=== PATIENT | male | born 1980 | race Caucasian/White ===

== ENCOUNTER 2019-11-13 09:42 | Emergency (ER) | payer SELFPAY ==
--- NOTE | ~2019-11-13 | XR_ITS ---
EXAMINATION: XR chest 2V 11/13/2019 10:57 INDICATION: Dyspnea PROCEDURE: 2 view chest COMPARISON: 09/02/2016 FINDINGS: The lungs are clear. The cardiomediastinal silhouette is within normal limits. There are no pleural effusions. There is no pneumothorax suspected. IMPRESSION: 1: NO ACUTE CARDIOPULMONARY DISEASE. Reviewed, dictated and finalized at location B.
--- NOTE | ~2019-11-13 | CT_ITS ---
EXAMINATION: CT abdomen pelvis w con DATE: 11/13/2019 11:46 INDICATION: Epigastric pain TECHNIQUE: Computed tomography (CT) of the abdomen and pelvis was performed with 100 cc Omnipaque 350 intravenous contrast. The dose-length product was 1286.38 mGy-cm. Automated exposure control and ite rative reconstruction technique were employed. COMPARISON: CT dated 07/26/2003 FINDINGS: Lung bases are unremarkable. No significant pleural or pericardial effusion. Heart size is normal. There is mild thickening of the pancreas with subtle peripancreatic infiltration of the fat, consistent with acute pancreatitis. The liver, spleen, adrenal glands and left kidney are unremarkabl e. There is a punctate nonobstructing bilateral renal stones. Normal appendix. Nonobstructive bowel g as pattern. No lymphadenopathy. No free air or free fluid. No abscess. No acute osseous abnormality. IMPRESSION: 1. Acute uncomplicated pancreatitis. 2: Nonobstructing bilateral nephrolithiasis. Reviewed, dictated and finalized at location B.
[2019-11-13 10:00] VITALS: BP 143/85; PULSE 64; RESP 16; TEMP 36.4; O2SAT 100
--- NOTE | 2019-11-13 10:35 | ECG_ITS ---
Measurements Intervals [place] Rate: 61 P: 20 IN: 175 QRS: -5 QRSD: 94 T: -2 QT: 403 QTc: 407 Interpretive Statements SINUS RHYTHM BORDERLINE ST-T WAVE ABNORMALITY- INFERIOR LEADS BORDERLINE ECG Electronically Signed On 11-13-2019 13:27:33 CDT by Varinder Garcia D.O.
--- NOTE | 2019-11-13 10:37 | ED.ABDPAIN ---
HPI - Abdominal Pain General Chief Complaint: Abdominal Pain Stated Complaint: upper abd pain Time Seen by Provider: 11/13/19 10:11 Source: patient Mode of arrival: ambulatory Limitations: no limitations History of Present Illness HPI narrative: This is a 38-year-old male that presents the emergency department for achy upper abdominal pain since yesterday afternoon. Reports it has been constant. Feels like a pressure. Worse with eating. Took Aleve yesterday with some relief. Denies fever, chest pain, shortness of breath, nausea, vomiting, diarrhea, or dysuria. Related Data Allergies Allergy/AdvReac Type Severity Reaction Status Date / Time oseltamivir Allergy Unknown Unknown Verified 11/13/19 10:51 Review of Systems Review of Systems: Narrative: CONSTITUTIONAL: Denies fever CARDIOVASCULAR: Denies chest pain, or edema. RESPIRATORY: Denies dyspnea. GASTROINTESTINAL: Reports abdominal pain. Denies nausea, vomiting, or diarrhea. GENITOURINARY: Denies dysuria or hematuria. All systems reviewed & are unremarkable except as noted in HPI and below PMFSH Past Medical History Medical History (Updated 11/13/19 @ 13:37 by Darlene Herbert PA-C) History of kidney stones Social History Social History (Updated 11/13/19 @ 10:38 by Darlene Herbert PA-C) Smoking status: Never smoker Substance use: never Exam Narrative: Exam Narrative: GENERAL: Well-appearing, well-nourished, and in no acute distress. HEAD: Normocephalic, atraumatic. EYES: EOMI. CHEST: Clear to auscultation. No respiratory distress. No wheezes rales or rhonchi HEART: Regular rate and rhythm. No murmur heard. Normal peripheral pulses. ABDOMEN: Soft, nondistended, normal active bowel sounds. Mild tenderness to palpation of the epigastrium, without guarding EXTREMITIES: Normal range of motion. No edema. SKIN: Warm, dry, no rash. NEURO: No focal deficits. Alert and oriented x3. PSYCH: Normal mood and affect Course Consultations Consultation #1: Spoke with patient's primary, Dr. Elan Molina about work-up will follow-up in clinic. Date: 11/13/19 Time: 13:36 Vital Signs Vital signs: Vital Signs Temperature 97.6 F 11/13/19 10:00 Pulse Rate 64 11/13/19 10:00 Respiratory Rate 16 11/13/19 10:00 Blood Pressure 143/85 H 11/13/19 10:00 Pulse Oximetry 100 11/13/19 10:00 Temperature 97.6 F 11/13/19 10:00 Pulse Rate 53 L 11/13/19 12:10 Respiratory Rate 16 11/13/19 12:10 Blood Pressure 128/80 11/13/19 12:10 Pulse Oximetry 98 11/13/19 12:10 MDM - Abdominal Pain MDM Narrative Medical decision making narrative: Patient presents to the emergency department for upper abdominal pain since yesterday. He is afebrile and nontoxic-appearing. CBC and metabolic panel without acute findings. Lipase is normal. UA without evidence of infection. Chest x-ray without acute findings. EKG without concerning changes and baseline troponin is negative. CT scan of the abdomen and pelvis shows acute uncomplicated pancreatitis. Patient is stable and felt appropriate for further outpatient evaluation. Will be given pain medication and nausea medication as needed for home. Spoke with patient's primary, Dr. Elan Molina about work-up will follow-up in clinic. Patient was given warnings to return to the ER Lab Data Attestation: I reviewed the patient's lab results. Result diagrams: 11/13/19 10:07 11/13/19 10:07 Labs: Lab Results 11/13/19 11/13/19 11/13/19 Range/Units 10:07 10:07 10:07 WBC 9.8 (4.5-10.0) K/mm3 RBC 4.72 (4.6-6.20) M/mm3 Hgb 15.2 (14.0-18.0) g/dL Hct 43.0 (42.0-52.0) % MCV 91.1 (80-100) fl MCH 32.2 (26-34) pg MCHC 35.3 (32-36) g/dl RDW 11.9 (11.5-14.5) % Plt Count 235 (150-375) k/mm3 MPV 10.9 H (7.4-10.4) fl Immature Gran % (Auto) 0.4 (0-0.5) % Neut % (Auto) 64.6 (45.5-73.1) % Lymph % (Auto) 23.1 (18.3-44.2) % [place] % (Auto) 8.2 (2.6
[2019-11-13 10:54] LABS: Basophils Absolute Auto 0.1 K/mm3 (0.0-0.1); Basophils Percent Auto 0.7 % (0.2-1.2); Eosinophils Absolute Auto 0.3 K/mm3 (0-0.3); Hemoglobin 15.2 g/dL (14.0-18.0); Immature Granulocyte Absolute 0.04 K/mm3 (0.00-0.031); Immature Granulocyte Percent A 0.4 % (0-0.5); Lymphocytes Absolute Auto 2.25 K/mm3 (0.9-3.2); Lymphocytes Percent Auto 23.1 % (18.3-44.2); Mean Corpuscular HGB Conc 35.3 g/dl (32-36); Mean Corpuscular Hemoglobin 32.2 pg (26-34); Mean Corpuscular Volume 91.1 fl (80-100); Mean Platelet Volume 10.9 fl (7.4-10.4); Monocytes Absolute Auto 0.8 K/mm3 (0.1-0.6); Monocytes Percent Auto 8.2 % (2.6-8.5); Neutrophils Absolute Auto 6.3 K/mm3 (1.3-6.7); Neutrophils Percent Auto 64.6 % (45.5-73.1); Platelet Count Result 235 k/mm3 (150-375); Red Blood Count 4.72 M/mm3 (4.6-6.20); Red Cell Distribution Width 11.9 % (11.5-14.5); White Blood Count 9.8 K/mm3 (4.5-10.0)
[2019-11-13] MEDS: ONDANSETRON INJ 4 MG/2 ML VIAL IV PUSH (11:01)
[2019-11-13] MEDS: FAMOTIDINE 20 MG/2 ML VIAL IV PUSH (11:01)
[2019-11-13 11:02] LABS: Alanine Aminotransferase 20 U/L (4-50); Albumin Level 4.4 g/dL (3.5-5.1); Alkaline Phosphatase 63 U/L (38-126); Aspartate Amino Transferase 21 U/L (17-59); Bilirubin,Total 0.8 mg/dL (0.2-1.3); Blood Urea Nitrogen 14 mg/dL (9-20); Calcium 8.5 mg/dL (8.4-10.2); Carbon Dioxide 26 mmol/L (22-30); Chloride 102 mmol/L (98-107); Estimated Glomerular Filt Rate > 60; Glucose 97 mg/dL (75-110); Lipase 38 U/L (23-300); Potassium 3.7 mmol/L (3.4-5.0); Sodium 136 mmol/L (137-145)
[2019-11-13 11:03] LABS: Add Urine Microscopic? NO; Appearance Urine Clear (Clear); Bilirubin Urine Negative (Negative); Blood Urine Negative (Negative); Color Urine Straw (Yellow); Glucose Urine UA Negative (Negative); Ketones Urine Negative (Negative); Leukocyte Esterase Ur Negative LEU/UL (Negative); Mucus Urine Rare /lpf; Nitrate Urine Negative (Negative); Protein Urine Negative (Negative); Specific Grav Ur 1.011 (1.001-1.035); Urobilinogen Urine Negative mg/dL (<2.0); WBC Urine 0-3 /hpf
[2019-11-13 11:42] LABS: Troponin I < 0.012 ng/mL (0.000-0.034)
[2019-11-13 12:10] VITALS: BP 128/80; PULSE 53; RESP 16; O2SAT 98
[2019-11-13] MEDS: SODIUM CHLORIDE 0.9% IV 1,000 ML 999 ML IV CONT (12:27)
[2019-11-13 14:40] VITALS: BP 144/82; PULSE 60; RESP 16; O2SAT 99
== END 2019-11-13 14:40 | disposition home or self-care (01) ==
PROVIDERS: Physician Assistant; Emergency Provider Emergency Medicine; PCP Nurse Practitioner Adult Health
DX: K85.90 Acute pancreatitis without necrosis or infection, unspecified (principal); Z87.442 Personal history of urinary calculi; R94.31 Abnormal electrocardiogram [ECG] [EKG]
CPT/HCPCS: 36415; 71046; 74177; 80053; 81003; 83690; 84484; 85025; 93005; 96361; 96374; 96375; 99284; J0131; J2405; J7030; Q9967